=== PATIENT | female | born 1950 | race Two or more races ===

== ENCOUNTER 2019-09-10 18:47 | Emergency (ER) | payer OTHER ==
--- NOTE | 2019-09-10 18:52 | NUR ---
SEEN AND EXAMINED BY .
[2019-09-10 19:30] LABS: BASOPHILS # (AUTO) 0.1 /CMM (0.0-0.2); BASOPHILS % (AUTO) 1.1 % (0.0-2.0); EOSINOPHILS % (AUTO) 17.9 % (0.0-6.0); HEMATOCRIT 38 % (33-45); HEMOGLOBIN 12.8 g/dL (11.5-14.8); LYMPHOCYTES # (AUTO) 1.7 /CMM (0.8-4.8); LYMPHOCYTES % (AUTO) 14.6 % (20.0-44.0); MEAN CORPUSCULAR HGB CONC 34 g/dl (31.0-36.0); MEAN CORPUSCULAR VOLUME 87 fL (82-100); MONOCYTES # (AUTO) 0.9 /CMM (0.1-1.30); MONOCYTES % (AUTO) 7.3 % (2.0-12.0); NEUTROPHILS % (AUTO) 59.1 % (43.0-81.0); PLATELET COUNT (AUTO) 282 /CMM (150-450); RED BLOOD CELL COUNT(AUTO) 4.41 MIL/uL (4.0-5.2); WHITE BLOOD COUNT (AUTO) 11.8 K/uL (4.3-11.0)
--- NOTE | 2019-09-10 19:39 | NUR ---
PT LEFT FOR CT VIA WC.
[2019-09-10 19:46] LABS: ALBUMIN 3.7 g/dL (3.4-5.0); BILIRUBIN,DIRECT 0.1 mg/dL (0.0-0.2); BILIRUBIN,TOTAL 0.4 mg/dL (0.2-1.0); CALCIUM, SERUM 9.5 mg/dL (8.5-10.1); CREATININE 0.9 mg/dL (0.6-1.3); POTASSIUM 3.5 mmol/L (3.5-5.1); TOTAL PROTEIN, SERUM 8.1 g/dL (6.4-8.2)
[2019-09-10] MEDS ORDERED: MORPHINE SULFATE INJ 4 MG/ML DISP.SYRIN ONE (19:49)
[2019-09-10] MEDS ORDERED: ONDANSETRON HCL/PF 4 MG/2 ML VIAL ONE (19:49)
[2019-09-10] MEDS: IV NS 0.9% 1,000 ML BAG IV ONE (19:59)
[2019-09-10] MEDS: MORPHINE SULFATE INJ 2 MG/ML DISP.SYRIN IV ONE (20:00)
[2019-09-10] MEDS: ONDANSETRON HCL/PF 4 MG/2 ML VIAL IVP ONE (20:00)
--- NOTE | 2019-09-10 20:02 | NUR ---
PT REC'D MEDICATION ORDERED.
--- NOTE | 2019-09-10 20:05 | NUR ---
PT REFUSED PAIN MEDICATION AND NAUSEA MEDICATION AT THIS TIME.
--- NOTE | 2019-09-10 20:28 | NUR ---
CALLING LAB FOR PT'S URINE SAMPLE.
[2019-09-10 20:37] LABS: APPEARANCE,URINE Slightly Cloudy (CLEAR); BILIRUBIN,URINE Negative (NEGATIVE); BLOOD, URINE Moderate Ery/uL (NEGATIVE); COLOR,URINE Yellow (YELLOW); KETONES,URINE Negative (NEGATIVE); LEUKOCYTE ESTERASE ,URINE Small (NEGATIVE); NITRITE, URINE Positive (NEGATIVE); PH,URINE 5.5 (5.0-8.0); PROTEIN,URINE Negative (NEGATIVE); UGLUCOSE Negative (NEGATIVE); UROBILINOGEN,URINE 0.2 EU/dL (0.2)
--- NOTE | 2019-09-10 20:38 | NUR ---
CALLED PT'S SON, LORETTA, FOR ANTONINA BUCK. Miriam CALHOUN NP IS SPEAKING TO THE PT'S SON WHO IS THE PERSON NOTED TO CONTACT.
[2019-09-10 20:49] LABS: BACTERIA,URINE 3+ /HPF (None Seen); SQUAMOUS EPITHELIAL CELL,UR Few /HPF (None Seen)
[2019-09-10] MEDS: CEPHALEXIN MONOHYDRATE 500 MG CAPSULE PO ONE (21:00)
[2019-09-10] MEDS ORDERED: CEPHALEXIN MONOHYDRATE 500 MG CAPSULE PO ONE (21:09)
[2019-09-10] MEDS ORDERED: ONDANSETRON 4 MG TAB.RAPDIS ONE (21:20)
[2019-09-10] MEDS ORDERED: NITROGLYCERIN 0.4 MG/TAB BOTTLE ONE (21:20)
[2019-09-10] MEDS ORDERED: HYDROCODONE/APAP 5/325MG 1 EACH TABLET ONE (21:22)
[2019-09-10] MEDS: HYDROCODONE/APAP 5/325MG 1 EACH TABLET PO ONE (21:25)
[2019-09-10] MEDS: ONDANSETRON 4 MG TAB.RAPDIS SL ONE (21:25)
--- NOTE | 2019-09-10 21:29 | NUR ---
PT'S SON IS CALLING AN UBER TO COLLECT THE PT. IV removed. Catheter intact and site benign. Pressure and 4x4 applied to site. No bleeding noted. Patient discharged to home in stable condition. Written and verbal after care instructions given. Patient's son, Lita, verbalizes understanding of instruction and Rx. Lita will explain all ACI to the pt as per his conversation with Miriam Payne NP. VSS.
--- NOTE | 2019-09-10 21:36 | NUR ---
UBER ARRIVED. PT AMBULATED OUT TO THE UBER WITH A STEADY GAIT.
[2019-09-10 21:37] VITALS: BP 110/62
== END 2019-09-10 21:37 | disposition home or self-care (01) ==
LOC: ER 18:51
DX: R10.32 Left lower quadrant pain (principal); M89.9 Disorder of bone, unspecified
CPT/HCPCS: 36415; 71045; 74176; 80048; 80076; 81001; 83690; 85025; 99285; J2270; J2405; J7030; Q0162; 81000-TC; 87086-TC